=== PATIENT | male | born 1960 | race Caucasian/White ===

== ENCOUNTER 2024-06-05 05:45 | Day surgery (SDC) | payer MEDICAID, SELFPAY ==
--- NOTE | 2024-06-03 06:55 | EKG_ITS ---
[facility] Test Date: 2024-06-03 Pat Name: ERIK AUGUST Department: Room: - Gender: Male Inspector [employer]: RT STUDENT : 1960 Requested By: Allen Moya Order Number: [id number] Reading MD: Allen Moya Measurements Intervals [place] Rate: 88 P: 43 NH: 182 QRS: 4 QRSD: 79 T: 52 QT: 334 QTc: 404 Interpretive Statements SINUS RHYTHM No previous ECG available for comparison /[email or web address]/[id number]
[2024-06-03 07:57] VITALS: BMI 35.6
[2024-06-03 09:20] LABS: Basophils # (Auto) 0.1 Thou/mm3 (0.0-0.2); Basophils % (Auto) 2 % (0-2.5); Eosinophils # (Auto) 0.3 Thou/mm3 (0.0-0.5); Eosinophils % (Auto) 6 % (0-10); Hematocrit 46.9 % (41.0-53.0); Hemoglobin 16.3 g/dL (13.5-16.0); Immature Granulocytes % (Auto) 1 % (0-0); Immature Granulocytes Auto 0.03 Thou/mm3 (0.00-0.00); Lymphocytes # (Auto) 1.3 Thou/mm3 (1.0-4.8); Lymphocytes % (Auto) 26 % (10-50); Mean Corpuscular HGB Conc 34.8 g/dl (31.0-37.0); Mean Corpuscular Hemoglobin 32.4 pg (25.0-35.0); Mean Corpuscular Volume 93 fL (80-100); Monocytes # (Auto) 0.5 Thou/mm3 (0.0-0.8); Monocytes % (Auto) 10 % (0-12); Neutrophils # (Auto) 2.7 Thou/mm3 (1.8-7.7); Neutrophils % (Auto) 55 % (37-80); Nucleated Red Blood Cell % 0 /100 WBC (0); Platelet Count 208 Thou/mm3 (140-440); RDW Standard Deviation 42.2 fL (35.1-43.9); Red Blood Count 5.03 Miln/mm3 (4.50-5.90); White Blood Count 4.9 Thou/mm3 (3.8-10.6)
[2024-06-03 09:28] LABS: Partial Thromboplastin Time 29.3 Seconds (22.0-36.0); Prothrombin Time 10.7 Seconds (9.0-12.2)
[2024-06-03 09:32] LABS: Alanine Aminotransferase 36 U/L (10-49); Albumin, Serum 4.4 gm/dL (3.4-4.8); Albumin/Globulin Ratio 1.8 (1.2-2.2); Alkaline Phosphatase 69 U/L (46-116); Anion Gap 8 (7-16); Aspartate Amino Transferase 28 U/L (0-34); BUN/Creatinine Ratio 14 Ratio (12-20); Bilirubin,Total 0.4 mg/dL (0.3-1.2); Blood Urea Nitrogen 18 mg/dL (9-23); Calcium 9.2 mg/dL (8.3-10.6); Calcium (Corrected) 9.2 mg/dL (8.5-10.1); Carbon Dioxide 28.1 mMol/L (20.0-31.0); Chloride 102 mMol/L (98-107); Creatinine (Component) 1.3 mg/dL (0.6-1.3); Estimated Creatinine Clearance 68.3 mL/min (>60); Globulin 2.4 gm/dL (2.3-3.5); Glucose 98 mg/dL (74-106); Osmolality,Calculated 277 (275-295); Potassium 3.9 mMol/L (3.4-5.1); Sodium 138 mMol/L (136-145); Total Protein 6.8 gm/dL (5.7-8.2); eGFR > 60 See Note
[2024-06-05] VITALS (7 sets, daily range): BP systolic 91–119; BP diastolic 64–82; PULSE 78–90; RESP 13–18; TEMP 36.2–36.7; O2SAT 95–99; BMI 34.2
[2024-06-05] MEDS: RINGERS LACTATED 1000 ML 1,000 ML 20 ML IV (06:56)
--- NOTE | 2024-06-05 07:26 | SUR.PREOP ---
Patient expressed gratitude for prayer before their procedure.
--- NOTE | 2024-06-05 08:59 | SUR.PHASEI ---
pt received from OR in recovery bay 5. pt asleep but responds to voice, breathing unlabored on oxymask 8l. v/s stable. pt dressing to right lower abd cdi. report received from Sparkle ROQUE and Dr. Johnson.
--- NOTE | 2024-06-05 09:16 | PD.SUROPNT ---
Date of Procedure 06/05/24 Pre Op Diagnosis Symptomatic right inguinal hernia Post Op Diagnosis Symptomatic right recurrent inguinal hernia Procedure Repair of the right recurrent inguinal hernia with PerFix plug and patch of Marlex Findings Patient is found to have defect close to the internal ring on the inguinal floor. Patient has had surgery when he was 11 years old and [facility]. He had a similar defect on the left inguinal hernia done in 2017 Procedure Description Out the patient was brought to the operating room endotracheal anesthesia was given. The lower abdomen was prepped with ChloraPrep solution draped in a sterile manner. Timeout was performed. Then he noticed that the patient had a surgical scar in the right groin due to the hernia repair done while he was 11 years old. I injected half percent Marcaine and then made an incision over the right groin for about 6 to 7 cm. External oblique was reached and it was incised. There were very few adhesions in spite of previous surgery 50 years ago. The cord structures were encircled around the David drain the patient was found to have a no sac. But he was found to have a bulging in the medial portion of the inguinal floor close to the cord structures and the internal ring. The medial portion of the inguinal floor was strong and did not require reconstruction. But the defect admitted easily to fingers. I decided to use a PerFix plug large in size and placed it in the internal ring. I sutured the plug to the transversalis fascia superiorly and then inferiorly it was stitched to the shelving edge with 1 stitch of 2-0 Prolene. At the end the repair appeared sound. I placed a 2 x 4 Marlex mesh and attach this medially to the pubic tubercle on the right tucked this mesh underneath the external oblique after crossing the cord structures. 1 stitch was placed lateral to the cord structures. Then the external oblique was closed with running 2-0 Vicryl and the subcutaneous tissue was closed with 3-0 plain. Skin was closed with 4-0 Monocryl and dressing was applied with Adaptic and 4 x 4 gauze. Patient tolerated and left operating room in stable condition Anesthesia [employer] PerFix plug large in size, 2 x 4 Marlex mesh on the floor of the inguinal c Pathology / specimen None Estimated Blood Loss 10 Surgeon Demetri Forman MD Surgical Staff Operation Date: 06/05/24 07:30 Case Staff Anesthesiologist: Brien Johnson manufacturing sr engineer: Meliza Fernandes
[2024-06-05] MEDS: fentaNYL CIT INJ 50 mCg/ML AMP 2ML 25 MCG IV (09:20)
--- NOTE | 2024-06-05 09:25 | SUR.PHASEI ---
pt able to tolerate oral fluids without difficulty swallowing or nausea/vomiting.
--- NOTE | 2024-06-05 10:07 | SUR.PHASEII ---
pt awake and alert, breathing unlabored on room air. v/s stable. pt dressing to right lower abd cdi. pt able to ambulate to wheelchair with steady gait. d/c instructions given with sister Cristela and s/o Dinorah in room, all questions answered. pt d/c via wheelchair with all belongings.
== END 2024-06-05 10:07 | disposition home or self-care (01) ==
PROVIDERS: PCP Physician Assistant; Referring Provider Surgery; Visit Provider Surgery
PROC: (CPT 49520; principal; 2024-06-05 07:30)
DX: K40.91 Unilateral inguinal hernia, without obstruction or gangrene, recurrent (principal); Z01.810 Encounter for preprocedural cardiovascular examination
CPT/HCPCS: 49520; 36415; 80053; 85025; 85610; 85730; 93005; A4217; A4649; C1781; J1100; J2250; J2371; J2405; J2704; J3010; J3490; J7120; A9270

== ENCOUNTER → 2024-07-02 | Outpatient (CLI) | payer MEDICAID, SELFPAY ==
--- NOTE | 2024-07-02 16:30 | XR_ITS ---
Examination: CT chest, without intravenous contrast. Sagittal and coronal 2-D reconstructions. Exam date and time: July 02, 2024 1637 hours INDICATIONS: 8mm nodule left lower lobe on CT abdomen study January 09, 2019 CTDI:vol (mGy) 16.4 DLP: (mGycm) 618 Technique: Multiple 3.0 mm axial sections of the chest to been obtained. Bone and lung density settings are obtained. Sagittal and coronal 2-D reconstructions have been obtained. Low dose protocols were performed. One or more of the following dose reduction techniques were used; automated exposure control, adjustment of the mA and/or KV according to patient size, use of iterative reconstruction technique. Findings: No thoracic aneurysm dilatation Pulmonary artery segments are not enlarged Mild to moderate left anterior descending coronary artery calcification No paratracheal tracheobronchial or bronchopulmonary adenopathy Stable 8 mm calcified pulmonary nodule posterior left lung Additional tiny calcified granulomas No pneumonia or pulmonary edema No visualized liver or splenic lesion No gallstones No pancreatic mass IMPRESSION: Stable 8 mm calcified pulmonary nodule left lower lobe
== END | disposition home or self-care (01) ==
PROVIDERS: PCP Physician Assistant; Referring Provider Physician Assistant; Visit Provider Physician Assistant
DX: R91.1 Solitary pulmonary nodule (principal)
CPT/HCPCS: 71250